=== PATIENT | female | born 1985 | race Caucasian/White ===

== ENCOUNTER 2017-01-30 13:30 | Emergency (ER) | payer MEDICAID, OTHER ==
[2017-01-30 13:45] VITALS: RESP 20; O2SAT 100
--- NOTE | 2017-01-30 13:53 | C.PDOC ---
History Of Present Illness 31 y/o female with past medical history of HLD presents to ER with complaints of chest pain since 07:00am this morning, pain is described as sharp in the mid sternal non radiating. Patient denies any fever, SOB, chills or N/V/D. No other complaints at this time. Time Seen by Provider: 01/30/17 13:39 Chief Complaint (Nursing): Chest Pain History Per: Patient History/Exam Limitations: no limitations Onset/Duration Of Symptoms: Hrs Current Symptoms Are (Timing): Still Present Severity: Mild Quality: Sharp Associated Symptoms: denies: Nausea Past Medical History Reviewed: Historical Data, Nursing Documentation, Vital Signs Vital Signs: Last Vital Signs Temp 98.5 F 01/30/17 13:42 Pulse 98 H 01/30/17 13:42 Resp 20 01/30/17 13:42 BP 140/93 H 01/30/17 13:42 Pulse Ox 100 01/30/17 14:03 - [facility] Procedures OTHER LOCAL DESTRUC SKIN (05/14/13) Family History: States: Unknown Family Hx - Social History Hx Tobacco Use: No Hx Alcohol Use: No Hx Substance Use: No - Immunization History Hx Tetanus Toxoid Vaccination: No Hx Influenza Vaccination: No Hx Pneumococcal Vaccination: No Review Of Systems Except As Marked, All Systems Reviewed And Found Negative. Constitutional: Negative for: Fever, Chills Cardiovascular: Positive for: Chest Pain (sharp midsternal pain) Respiratory: Negative for: Cough, Shortness of Breath Gastrointestinal: Negative for: Nausea, Vomiting, Diarrhea Neurological: Negative for: Weakness Physical Exam - Physical Exam Appears: Non-toxic, No Acute Distress Skin: Normal Color Head: Atraumatic, Normacephalic Oral Mucosa: Moist Neck: Normal ROM Chest: Symmetrical, No Tenderness Cardiovascular: Rhythm Regular Respiratory: Normal Breath Sounds, No Rales, No Rhonchi, No Wheezing Neurological/Psych: Oriented x3, Normal Speech, Normal Cognition, Other ( Patient Mildly anxious) ED Course And Treatment - Laboratory Results Result Diagrams: 01/30/17 13:54 01/30/17 13:54 Rate From EC O2 Sat by Pulse Oximetry: 100 (Room air ) Pulse Ox Interpretation: Normal - Radiology Nexus Criteria: Negative Medical Decision Making Medical Decision Making: atypical cp r/o acs, vs other metabolic, infectious, pulm etiology- labs imaging pending, perc neg 320: pt reports symptoms improved. cxr neg as read by me. atypical pain. advise outpt f/u and return precautions Disposition - Disposition Disposition: HOME/ ROUTINE Disposition Time: 15:21 Condition: STABLE Additional Instructions: please see specialist and your doctor/clinic. return to er with worsening symptoms or concerns. Instructions: Chest Pain (ED), Palpitations (ED) - Clinical Impression Clinical Impression: Chest pain, Palpitations - PA / [employer] / Resident Statement MD/DO has reviewed & agrees with the documentation as recorded. MD/DO has examined the patient and agrees with the treatment plan. - Scribe Statement The provider has reviewed the documentation as recorded by the Yaoibjuana Vallejo All medical record entries made by the Niyah were at my direction and personally dictated by me. I have reviewed the chart and agree that the record accurately reflects my personal performance of the history, physical exam, medical decision making, and the department course for this patient. I have also personally directed, reviewed, and agree with the discharge instructions and disposition.
[2017-01-30 14:00] LABS: MEAN CORPUSCULAR HEMOGLOBIN 22.8 pg (27.0-31.0); MEAN PLATELET VOLUME 7.2 fL (7.2-11.7)
[2017-01-30 14:04] LABS: BASO % 0.8 % (0.0-2.0); EOS # 0.1 K/uL (0.0-0.7); EOS % 1.3 % (0.0-4.0); HEMATOCRIT 34.9 % (34.0-47.0); LYMPH # 1.9 K/uL (1.0-4.3); LYMPH % 47.2 % (20.0-40.0); MEAN CORPUSCULAR HGB CONC 31.7 g/dL (33.0-37.0); MONO # 0.4 K/uL (0.0-0.8); MONO % 10.8 % (0.0-10.0); RED CELL DISTRIBUTION WIDTH 15.8 % (11.5-14.5)
[2017-01-30 14:06] LABS: MEAN CELL VOLUME 71.9 fL (81.0-99.0)
[2017-01-30 14:27] LABS: CHLORIDE 99 mmol/L (98-107); POTASSIUM 3.6 mmol/L (3.6-5.2); SODIUM 140 mmol/L (132-148)
[2017-01-30 14:29] LABS: ALB/GLOB RATIO 1.5 (1.0-2.1); ALKALINE PHOSPHATASE 47 U/L (38-126); AST/SGOT 20 U/L (14-36); BILIRUBIN,TOTAL 0.1 mg/dL (0.2-1.3); CARBON DIOXIDE 27 mmol/L (22-30); GFR AFRICAN-AMERICAN > 60; TOTAL PROTEIN 8.7 g/dL (6.3-8.3)
[2017-01-30 14:30] LABS: ALT/SGPT 30 U/L (9-52); BLOOD UREA NITROGEN 21 mg/dL (7-17); CALCIUM 9.6 mg/dl (8.6-10.4); GLUCOSE,RANDOM 86 mg/dL (65-105)
[2017-01-30 14:30] LABS: RBC URINE < 1 /hpf (0-3); URINE BILIRUBIN NEGATIVE (NEGATIVE); URINE BLOOD 1+ (NEGATIVE); URINE COLOR Colorless (YELLOW); URINE GLUCOSE (UA) NORMAL (Normal); URINE KETONE NEGATIVE (NEGATIVE); URINE LEUKOCYTE ESTERASE NEG Leu/uL (Negative); URINE PROTEIN NEGATIVE (NEGATIVE); URINE UROBILINOGEN NORMAL mg/dL (0.2-1.0); WBC URINE 1 /hpf (0-5)
[2017-01-30 16:24] VITALS: BP 133/81; PULSE 93; TEMP 98.2
--- NOTE | 2017-01-30 17:17 | RAD ---
PROCEDURE: CHEST RADIOGRAPH, 1 VIEW HISTORY: chest pain COMPARISON: Comparison is made to the previous study dated 10/03/2013 FINDINGS: LUNGS: Clear. PLEURA: No pneumothorax or pleural fluid seen. CARDIOVASCULAR: Normal. OSSEOUS STRUCTURES: No significant abnormalities. VISUALIZED UPPER ABDOMEN: Normal. OTHER FINDINGS: None. IMPRESSION: No active disease.
--- NOTE | 2017-02-04 15:06 | CARD ---
APPROVED REPORT EKG Measurement Heart [id number] ME [id number] <Conclusion> Normal sinus rhythm Normal ECG
== END 2017-01-30 16:24 | disposition home or self-care (01) ==
LOC: C.ER 13:30
DX: R07.9 Chest pain, unspecified (principal); R00.2 Palpitations
CPT/HCPCS: 71010; 80053; 81001; 83690; 84484; 84703; 85025; 85610; 85730; 96374; 99284; J2405

== ENCOUNTER 2017-08-19 23:31 | Emergency (ER) | payer OTHER ==
--- NOTE | 2017-08-20 00:52 | C.PDOC ---
History Of Present Illness 32 year old female presents to the ER with a complaint of high blood pressure associated with a headache and nausea. Denies vomiting, change in vision, or chest pain. Chief Complaint (Nursing): High Blood Pressure History Per: Patient History/Exam Limitations: no limitations Onset/Duration Of Symptoms: Hrs Current Symptoms Are (Timing): Still Present Associated Symptoms: Headache, Other (Nausea). denies: Chest Pain, Dyspnea, Dizziness, Blurred Vision, Focal Weakness Quality Of Symptoms: Asymptomatic Exacerbating Factor(s): Pos: None Recent travel outside of the [place]: No Past Medical History Reviewed: Historical Data, Nursing Documentation, Vital Signs Vital Signs: Last Vital Signs Temp 98.2 F 08/20/17 03:00 Pulse 82 08/20/17 03:00 Resp 16 08/20/17 03:00 BP 153/90 H 08/20/17 03:00 Pulse Ox 100 08/20/17 03:00 - Medical History PMH: Hypercholesterolemia Surgical History: No Surg Hx - [facility] Procedures OTHER LOCAL DESTRUC SKIN (05/14/13) Family History: States: Unknown Family Hx - Social History Hx Tobacco Use: No Hx Alcohol Use: No Hx Substance Use: No - Immunization History Hx Tetanus Toxoid Vaccination: No Hx Influenza Vaccination: No Hx Pneumococcal Vaccination: No Review Of Systems Constitutional: Negative for: Fever, Chills Eyes: Negative for: Vision Change Cardiovascular: Negative for: Chest Pain Gastrointestinal: Positive for: Nausea. Negative for: Vomiting Neurological: Positive for: Headache. Negative for: Dizziness Physical Exam - Physical Exam Appears: Non-toxic, No Acute Distress Skin: Normal Color, Warm, Dry Head: Atraumatic, Normacephalic Eye(s): bilateral: Normal Inspection, PERRL, EOMI Oral Mucosa: Moist Neck: Normal, No Midline Cervical Tenderness, No Paracervical Tenderness, Supple Chest: Symmetrical, No Tenderness Cardiovascular: Rhythm Regular, No Murmur Respiratory: Normal Breath Sounds, No Rales, No Rhonchi, No Wheezing Gastrointestinal/Abdominal: Soft, No Tenderness Extremity: Normal ROM (x4), No Pedal Edema Neurological/Psych: Oriented x3, Normal Speech, Other (No focal deficits) ED Course And Treatment - Laboratory Results Result Diagrams: 08/20/17 00:59 08/20/17 00:59 O2 Sat by Pulse Oximetry: 100 (Room air) Pulse Ox Interpretation: Normal Progress Note: Blood work, urinalysis, EKG, and CT head ordered. Zofran administered Disposition Counseled Patient/Family Regarding: Diagnosis - Disposition Referrals: [facility] [Outside] Disposition: HOME/ ROUTINE Disposition Time: 03:04 Condition: STABLE Additional Instructions: ff up clinic for BP check and reevaluation Prescriptions: hydroCHLOROthiazide [Hydrodiuril] 25 mg PO DAILY #10 tab Instructions: Hypertension (ED), Low Sodium Diet (ED) Forms: [employer] (Mongolian) - POA Present On Arrival: None - Clinical Impression Clinical Impression: Hypertension, Abnormal blood pressure - Scribe Statement The provider has reviewed the documentation as recorded by the Scribe Ty Overton All medical record entries made by the Scribe were at my direction and personally dictated by me. I have reviewed the chart and agree that the record accurately reflects my personal performance of the history, physical exam, medical decision making, and the department course for this patient. I have also personally directed, reviewed, and agree with the discharge instructions and disposition.
[2017-08-20 01:03] LABS: BASO % 0.8 % (0.0-2.0); EOS # 0.1 K/uL (0.0-0.7); EOS % 2.5 % (0.0-4.0); HEMATOCRIT 36.1 % (34.0-47.0); LYMPH # 2.4 K/uL (1.0-4.3); LYMPH % 61.8 % (20.0-40.0); MEAN CELL VOLUME 73.4 fL (81.0-99.0); MEAN CORPUSCULAR HEMOGLOBIN 23.7 pg (27.0-31.0); MEAN CORPUSCULAR HGB CONC 32.3 g/dL (33.0-37.0); MEAN PLATELET VOLUME 6.8 fL (7.2-11.7); MONO # 0.4 K/uL (0.0-0.8); WHITE BLOOD COUNT 3.9 K/uL (4.8-10.8)
[2017-08-20 01:15] LABS: ALKALINE PHOSPHATASE 38 U/L (38-126); ALT/SGPT 44 U/L (9-52); AST/SGOT 19 U/L (14-36); BILIRUBIN,TOTAL 0.4 mg/dL (0.2-1.3); BLOOD UREA NITROGEN 10 mg/dL (7-17); CALCIUM 8.7 mg/dl (8.6-10.4); CARBON DIOXIDE 22 mmol/L (22-30); CHLORIDE 104 mmol/L (98-107); GFR AFRICAN-AMERICAN > 60; GLUCOSE,RANDOM 94 mg/dL (65-105); POTASSIUM 3.8 mmol/L (3.6-5.2); SODIUM 140 mmol/L (132-148); TOTAL PROTEIN 9.3 g/dL (6.3-8.3)
[2017-08-20 01:19] LABS: ALB/GLOB RATIO 0.9 (1.0-2.1)
--- NOTE | 2017-08-20 02:58 | CT ---
EXAM: CT Head Without Intravenous Contrast EXAM DATE/TIME: 08/20/2017 12:46 AM CLINICAL HISTORY: 32 years old, female; Pain; Headache; Headache not specified TECHNIQUE: Axial computed tomography images of the head/brain without intravenous contrast. All CT scans at this facility use one or more dose reduction techniques, viz.: automated exposure control; ma/kV adjustment per patient size (including targeted exams where dose is matched to indication; i.e. head); or iterative reconstruction technique. Coronal and sagittal reformatted images were created and reviewed. COMPARISON: No relevant prior studies available. FINDINGS: Slightly prominent sulci in the frontal lobes for the patient's age. Slight asymmetry in the ventricles being more prominent on the right. No intracranial hemorrhage. No intracranial edema. No evidence of infarct. The sinuses and mastoid air cells are clear. IMPRESSION: No acute findings. Prominent sulci and ventricles for the patient's age. Similar findings described in prior report - no images provided for correlation.
[2017-08-20 03:00] VITALS: BP 153/90; PULSE 82; RESP 16; TEMP 98.2; O2SAT 100
--- NOTE | 2017-08-23 18:31 | CARD ---
APPROVED REPORT EKG Measurement Heart [id number] SC 154P57 [id number] <Conclusion> Normal sinus rhythm Normal ECG
== END 2017-08-20 03:29 | disposition home or self-care (01) ==
LOC: C.ER 23:31
DX: I10 Essential (primary) hypertension (principal)
CPT/HCPCS: 70450; 80053; 84703; 85025; 93005; 96374; 99285; J2405